=== PATIENT | male | born 1970 | race Caucasian/White ===

== ENCOUNTER 2021-11-23 14:45 | Inpatient (IN) | payer MEDICAID, SELFPAY ==
[2021-11-23] VITALS (7 sets, daily range): BP systolic 109–158; BP diastolic 60–109; PULSE 85–111; RESP 15–19; TEMP 36.4–36.5; O2SAT 93–98; BMI 23.7
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
[2021-11-23 16:05] LABS: Amphetamines Screen Urine Negative (Negative); Barbiturates Screen Urine Negative (Negative); Benzodiazepines Screen Urine Negative (Negative); Cocaine Screen Urine Negative (Negative); Opiate Screen Urine Negative (Negative); PCP Screen Urine Negative (Negative); THC Screen Urine Negative (Negative)
[2021-11-23 16:05] LABS: Basophils # 0.1 10^3/uL (0.0-0.1); Basophils % 1.2 %; Eosinophils # 0.3 10^3/uL (0.0-0.8); Eosinophils % 2.5 %; Hematocrit 46.8 % (42.0-52.0); Hemoglobin 15.5 g/dL (11.7-16.6); Lymphocytes # 4.7 10^3/uL (0.8-4.8); Lymphocytes % 43.8 %; Mean Corpuscular HGB Conc 33.1 g/dL (30.0-36.0); Mean Corpuscular Hemoglobin 36.7 pg (28.0-34.0); Mean Corpuscular Volume 110.9 fl (80-94); Mean Platelet Volume 8.3 fL (7.4-10.4); Monocytes # 0.6 10^3/uL (0.2-0.9); Monocytes % 5.1 %; Neutrophils # 5.12 10^3/uL (1.8-7.7); Neutrophils % 47.2 %; Nucleated Red Blood Cells % 0 %; Platelet Count 362 10^3/cmm (130-400); Red Blood Count 4.22 10^6/uL (4.1-5.3); Red Cell Distribution Width 11.7 % (12.1-15.1); White Blood Count 10.8 10^3/uL (4.0-10.0)
[2021-11-23] MEDS: LORazepam 1 mg Tablet PO (16:25)
[2021-11-23 16:30] LABS: Alanine Aminotransferase 50 U/L (0-41); Albumin Level 4.7 g/dL (3.5-5.2); Alkaline Phosphatase 83 U/L (40-130); Blood Urea Nitrogen 11 mg/dL (6-20); Calcium 8.9 mg/dL (8.5-10.5); Carbon Dioxide 25 mmol/L (22-29); Chloride 103 mmol/L (98-107); Glomerular Filtration Rate 119.9 mL/min (90-130); Glucose 102 mg/dL (65-115); Osmolality Calculated 296 mOsm/kg (285-295); Sodium 143 mmol/L (136-145); Thyroid Stimulating Hormone 0.42 uIU/mL (0.27-4.20); Total Bilirubin 0.2 mg/dL (0.15-1.2); Total Protein 7.7 g/dL (6.6-8.7)
[2021-11-23 16:31] LABS: Acetaminophen < 5.0 ug/mL (10-30); Salicylate < 0.3 mg/dL (3-10)
[2021-11-23 16:33] LABS: Alcohol Level 345 mg/dL (0-10); Aspartate Amino Transferase 54 U/L (0-40)
[2021-11-23] MEDS: haloperidol inj 5 mg/mL INJ 1 mL IM (16:36)
--- NOTE | 2021-11-23 18:54 | PC.NURSE ---
Report received from CLEMENT Fraire, assumed care of patient at this time.
--- NOTE | 2021-11-23 19:09 | PC.NURSE ---
discussed pending orders with dr rizo, new verbal order to hold all phlebotomy and IV insertion/medications while patient is sleeping. On awakening if patient is cooperative, may insert iv for blood draw and medications.
--- NOTE | 2021-11-23 21:39 | PC.NURSE ---
BAL drawn by lab at this time, patient cooperative. nad, gcs 15, cooperative with staff at this time. awaiting BAL result for transfer to NPU.
[2021-11-23 21:57] LABS: Alcohol Level 225 mg/dL (0-10)
--- NOTE | 2021-11-23 22:07 | PC.NURSE ---
report called to [facility], patient accepted to NPU.
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
[2021-11-24 06:00] VITALS: BP 118/78; PULSE 84; RESP 16; TEMP 36.6; O2SAT 95
[2021-11-24] MEDS: LORazepam 2 mg Tablet PO ×5 (06:26→20:18)
--- NOTE | 2021-11-24 06:28 | PC.NURSE ---
0620 CIWA 17 at this time, pt had been resting quietly since admit, when CIWA was 4 s/s noted when VS taken. Franny 2mg po per protocol at this time
[2021-11-24] MEDS: thiamine 100 mg Tablet PO (09:12)
[2021-11-24] MEDS: folic acid 1 mg Tablet PO (09:12)
[2021-11-24] MEDS: multivitamin therapeutic Tablet 1 TAB PO (09:12)
[2021-11-24 14:00] VITALS: BP 119/79; PULSE 92; RESP 15; TEMP 36.6; O2SAT 93
--- NOTE | 2021-11-24 15:20 | P.NPUHP_ITS ---
Providers/Chief Complaint Admitting Physician: Blue Santacruz MD Chief Complaint: suicidal ideation. HPI NPU History of Present Illness Elver Parks is a 51 year old male admitted voluntarily after presenting to the emergency department having consumed reportedly a half a gallon of whiskey 2 days ago. He endorses a significant history of alcohol abuse for several years and states that he has a significant ongoing use of daily alcohol for several years. He had reported during his brief interview that he has been depressed at times. Patient was admitted to the neuropsychiatric unit and has already rec eived Ativan for considerable alcohol-related withdrawals noted on the CIWA scale. The patient was confused and unable to provide any further detailed history. Past psychiatric history: He had reported unspecified history of inpatient psychiatric treatment. He reports currently not seeing a psychiatrist. Drug and alcohol history: The patient had reported a history of significant alcohol use with a history of significant withdrawal symptoms reported in the past. Medical history: He reports being diagnosed with hepatitis C. Current medications: None Surgical history: He has a history of exploratory laparotomy in the past. Allergies: He has no known drug allergies. Surgical social history: He reports that he lives in [facility] with his mother who is ill. He reports having grown up in [facility] with his family who were farmers. He reports having dropped out of the 12th grade and reports having earned his GED. 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 He does not report being . He did not endorse any history of sexual physical or emotional abuse. Meds NPU Home Medications Medication Instructions Recorded Confirmed Last Taken Type No Known Home Medications 11/23/21 11/23/21 Unknown History Allergies Allergy/AdvReac Type Severity Reaction Status Date / Time No Known Allergies Allergy Unverified 11/23/21 15:33 Mental Status Exam MSE Comments: The patient was lying in bed difficult to arouse and was unable to sit up to provide full details during the interview. He did appear to be trembling with significant shaking noted. He was in and out of consciousness throughout much of the interview. His mood was described as terrible his affect appeared flat and mood congruent his thought process is linear and logical. His thought content showed no evidence of homicidal ideation and he minimized suicidal ideation. He was alert and oriented to person and place but not date. There was no clear evidence of delusional thinking. He did not appear to be responding to internal stimuli. His attention and concentration appeared poor his insight was poor. His judgment was poor. Vitals/I&O/Wt Last Vital Signs Temp 98 F 11/24/21 14:00 Pulse 92 11/24/21 14:00 Resp 15 11/24/21 14:00 BP 119/79 11/24/21 14:00 Pulse Ox 93 11/24/21 14:00 O2 Del Method 11/24/21 06:00 Weight last 48 hrs Weight 81.647 kg Data NPU : 11/23/21 15:55 11/23/21 15:55 A&P Assessment and plan (1) Suicidal ideation: (2) Alcohol abuse: Plan Patient is a 51-year-old white male with reported history of suicidal ideation and alcohol dependence with elevated blood alcohol of 225 with significant jeff rn about alcohol withdrawal seizures. 1.? Encourage individual, group and milieu therapy 2.? Continue q-15 minute check for safety, continue CIWA protocol. 3.? Recommend sober living treatment at the highest level of care to which the patient is willing to commit. Involuntary Hold Information 96 Hour Hold: 96 Hour Involuntary Admission: Yes 96 Hour Hold Ending Date: 11/28/21 96 Hour Hold Ending Time: 00:01 Attestations NPU Medical Necessity Statement*: Inpatient hospitalization is medically necessary and the clinically appropriate intervention at this time. We will monitor medications and make changes as indicated. Patient will be in the hospital for over two midnights. Likely length of stay is three to five days. Coding Level of Care Code New Pt Acute Steam Trap Man for Cherrieg Fwd Patient Type New Medical Decision Making Straight Forward Diagnoses Suicidal ideation R45.851 Alcohol abuse F10.10
[2021-11-24 20:25] VITALS: BP 136/74; PULSE 93; RESP 18; TEMP 36.3; O2SAT 96
[2021-11-25] MEDS: ondansetron 4 MG Tablet PO (00:06)
[2021-11-25] MEDS: LORazepam 2 mg Tablet PO ×9 (00:08→22:22)
[2021-11-25] MEDS: acetaminophen 325 mg Tablet 650 MG PO ×2 (04:16→20:20)
[2021-11-25 06:00] VITALS: BP 128/80; PULSE 108; RESP 16; TEMP 36.9; O2SAT 97
--- NOTE | 2021-11-25 06:26 | PC.NURSE ---
Patient scored on CIWA 17,10,and 11 throughout the night:medicated with Ativan 2 mg at each assessment,medicated with Tylenol x1 for headache.
[2021-11-25] MEDS: folic acid 1 mg Tablet PO (08:13)
[2021-11-25] MEDS: thiamine 100 mg Tablet PO (08:13)
[2021-11-25] MEDS: multivitamin therapeutic Tablet 1 TAB PO (08:13)
[2021-11-25] MEDS: nicotine 2 mg Gum BUCCAL (09:47)
--- NOTE | 2021-11-25 12:03 | NUR.SHIFT ---
at 0800 pt assessment done bedside. pt extremely tremulous and weak, pt is mildly diaphoretic, reports nausea, pt reports last bm 11/24, itching skin, is confused and reports 6/10 anxiety. pt denies si/hi/avh and depression. reports 8/10 headpain. pt receiving 2 mg ativan due to CIWA score. pt cooperative although anxious. pt requesting to go home, pt verbalized understanding that he was not appropriate to discharge at this time.
[2021-11-25 14:00] VITALS: BP 110/71; PULSE 86; RESP 16; TEMP 36.7; O2SAT 94
[2021-11-25] MEDS: nicotine 4 mg lozenge MUCOUS MEM (17:54)
--- NOTE | 2021-11-25 18:15 | P.NPUPN_ITS ---
Subjective NPU Subjective: Patient is a 51-year-old white male admitted with suicidal ideation depression and alcohol dependence with the patient having reported having consumed a half a gallon of whiskey. Patient's mother had provided additional information that the patient was engaging in binge drinking. The patient had reported depressed mood but reports that he was feeling better today. Despite this, the patient's did appear to show evidence of significant tremors and required lorazepam to prevent alcohol withdrawal symptoms. Patient had endorsed an extended history of alcohol use and was unable to provide any evidence that he wished to consider stopping his use of alcohol despite some evidence of significant medical consequences associated with alcohol use. Patient was minimally involved in the milieu as he came out briefly to eat and returned back to his room where he isolated himself under the covers of his bed. Mental Status Exam MSE Comments: The patient was lying in bed difficult to arouse again and provided minimal history again today. He did appear to be trembling with significant shaking noted. He was in and out of consciousness throughout much of the interview. His mood was described as better His affect appeared flat and mood incongruent.His thought process is linear and logical. His thought content showed no evidence of homicidal ideation and he minimized suicidal ideation. He was alert and oriented to person and place but not date. There was no clear evidence of delusional thinking. He did not appear to be responding to internal stimuli. His attention and concentration appeared poor. his insight was poor. His judgment was poor. His impulse control remained guarded. Vitals/I&O/Wt Last Vital Signs Temp 98.1 F 11/25/21 14:00 Pulse 86 11/25/21 14:00 Resp 16 11/25/21 14:00 BP 110/71 11/25/21 14:00 Pulse Ox 94 11/25/21 14:00 O2 Del Method 11/25/21 14:00 Data NPU : 11/23/21 15:55 11/23/21 15:55 A&P Assessment and plan (1) Suicidal ideation: (2) Alcohol abuse: Plan Patient is a 51-year-old white male with reported history of suicidal ideation and alcohol dependence with elevated blood alcohol of 225 with significant concern about alcohol withdrawal seizures. 1.? Encourage individual, group and milieu therapy 2.? Continue q-15 minute check for safety, continue CIWA protocol. 3.? Recommend sober living treatment at the highest level of care to which the patient is willing to commit. Involuntary Hold Information 96 Hour Hold: 96 Hour Involuntary Admission: Yes 96 Hour Hold Ending Date: 11/28/21 96 Hour Hold Ending Time: 00:01 Attestations NPU Medical Necessity Statement*: Inpatient hospitalization is medically necessary and the clinically appropriate intervention at this time. We will monitor medications and make changes as indicated. Patient will be in the hospital for over two midnights. Likely length of stay is three to five days. Coding Level of Care Code Established Pt Acute Fashion Consultant Selling for Chg Fwd Patient Type Established History Problem Focused Exam Problem Focused Medical Decision Making Straight Forward Diagnoses Suicidal ideation R45.851 Alcohol abuse F10.10
[2021-11-25] MEDS: trazodone 50 mg Tablet PO (20:20)
[2021-11-25 22:00] VITALS: BP 126/77; PULSE 96; RESP 18; TEMP 36.6; O2SAT 95
[2021-11-26] VITALS (46 sets, daily range): BP systolic 102–147; BP diastolic 72–113; PULSE 67–123; RESP 12–24; TEMP 36.4–36.6; O2SAT 89–96
[2021-11-26] MEDS: nicotine 2 mg Gum BUCCAL ×2 (07:35→10:25)
[2021-11-26] MEDS: multivitamin therapeutic Tablet 1 TAB PO (09:28)
[2021-11-26] MEDS: folic acid 1 mg Tablet PO (09:28)
[2021-11-26] MEDS: thiamine 100 mg Tablet PO (09:28)
[2021-11-26] MEDS: benztropine 1 mg Tablet PO (09:32)
[2021-11-26] MEDS: LORazepam 2 mg Tablet PO (09:32)
--- NOTE | 2021-11-26 09:34 | P.NPUPN_ITS ---
Subjective NPU Subjective: Patient is a 51-year-old white male admitted with suicidal ideation, depression and alcohol dependence with the patient having reported having consumed a half a gallon of whiskey. Patient's mother had provided additional information that the patient was engaging in binge drinking. The patient had endorsed feeling somewhat dizzy and shaky but otherwise reported that he was feeling much better. Patient was encouraged to continue to improve fluid intake and reported desire to return home soon. He reported his mood as being improved and reported feeling motivated to return home to work. He had continue to minimize his alcohol consumption. Mental Status Exam MSE Comments: The patient was lying in bed and was alert and oriented today. He was more conversant and cooperative. He did appear to be trembling with significant shaking noted. His mood was described as better . His affect a ppeared brighter and mood congruent. His thought process is linear and logical. His thought content showed no evidence of homicidal ideation and he minimized suicidal ideation. There was no clear evidence of delusional thinking. He did not appear to be responding to internal stimuli. His attention and concentration appeared better. his insight was poor. His judgment was poor. His impulse control remained guarded. Vitals/I&O/Wt Last Vital Signs Temp 97.8 F 11/26/21 06:00 Pulse 90 11/26/21 15:30 Resp 16 11/26/21 15:30 BP 135/88 11/26/21 15:30 Pulse Ox 95 11/26/21 15:30 O2 Del Method 11/25/21 14:00 11/26/21 11/26/21 11/26/21 06:59 14:59 22:59 Intake Total 300 / 300 Balance 300 / 300 Data NPU : 11/23/21 15:55 11/26/21 14:23 A&P Assessment and plan (1) Depressive disorder: (2) Suicidal ideation: (3) Alcohol abuse: Plan Patient is a 51-year-old white male with reported history of suicidal ideation and alcohol dependence with elevated blood alcohol of 225 with significant concern about alcohol withdrawal seizures. 1.? Encourage individual, group and milieu therapy 2.? Continue q-15 minute check for safety, continue CIWA protocol. 3.? Recommend sober living treatment at the highest level of care to which the patient is willing to commit. Involuntary Hold Information 96 Hour Hold: 96 Hour Involuntary Admission: Yes 96 Hour Hold Ending Date: 11/28/21 96 Hour Hold Ending Time: 00:01 Attestations NPU Medical Necessity Statement*: Inpatient hospitalization is medically necessary and the clinically appropriate intervention at this time. We will monitor med ications and make changes as indicated. Patient will likely be hospitalized for 1 to 2 days. Coding Level of Care Code Established Pt Acute Solar/Renewable Energy Sales for Chg Fwd Patient Type Established History Problem Focused Exam Problem Focused Medical Decision Making Straight Forward Diagnoses Depressive disorder F32.A Suicidal ideation R45.851 Alcohol abuse F10.10
[2021-11-26] MEDS: ondansetron 4 MG Tablet PO (09:35)
--- NOTE | 2021-11-26 09:39 | PC.NURSE ---
Pt experiencing detox, administered 2mg PO Ativan for symptoms.
[2021-11-26] MEDS: LORazepam 2 mg/mL INJ 1 mL IM ×2 (12:05→12:17)
[2021-11-26 12:19] LABS: Glucose Point of Care 105 mg/dL (70-110)
[2021-11-26] MEDS: PHENobarbital 130 mg/mL SDV 1 mL 260 MG IV ×4 (12:33→17:20)
--- NOTE | 2021-11-26 12:48 | PC.NURSE ---
patient arrived from NPU after rapid response, Dr. Potter at bedside, gave v.o. to give Phenobarb, administered per APR, patient AO x4 follows commands
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
--- NOTE | 2021-11-26 14:05 | CTR_ITS ---
PROCEDURE INFORMATION: Exam: CT Head Without Contrast Exam date and time: 11/26/2021 4:28 PM Age: 51 years old Clinical indication: Psychosis or psychotic disorder; Other: Seizure activity TECHNIQUE: Imaging protocol: Computed tomography of the head without contrast. Radiation optimization: All CT scans at this facility use at least one of these dose optimization techniques: automated exposure control; mA and/or kV adjustment per patient size (includes targeted exams where dose is matched to clinical indication); or iterative reconstruction. COMPARISON: No relevant prior studies available. RADIATION DOSE METRICS: Total DLP (mGy-cm): 1131.78 FINDINGS: Brain: No hemorrhage. No edema. Mild sequela of chronic small vessel ischemic disease. No mass effect. Cerebral ventricles: No ventriculomegaly. Paranasal sinuses: Visualized sinuses are unremarkable. No fluid levels. Mastoid air cells: Visualized mastoid air cells are well aerated. Bones/joints: Unremarkable. No acute fracture. Soft tissues: Unremarkable. CT/CT head wo con* [id number] IMPRESSION: No acute intracranial abnormality.
--- NOTE | 2021-11-26 14:37 | PC.NURSE ---
Seizure noted approximately 3 minutes
[2021-11-26 14:58] LABS: Alanine Aminotransferase 37 U/L (0-41); Albumin Level 3.9 g/dL (3.5-5.2); Alkaline Phosphatase 71 U/L (40-130); Blood Urea Nitrogen 7 mg/dL (6-20); Calcium 9.1 mg/dL (8.5-10.5); Carbon Dioxide 23 mmol/L (22-29); Chloride 102 mmol/L (98-107); Globulin 2.7 g/dL (1.3-4.6); Glomerular Filtration Rate 119.9 mL/min (90-130); Glucose 190 mg/dL (65-115); Magnesium 1.8 mg/dL (1.7-2.3); Osmolality Calculated 287 mOsm/kg (285-295); Sodium 137 mmol/L (136-145); Total Bilirubin 0.4 mg/dL (0.15-1.2); Total Protein 6.6 g/dL (6.6-8.7)
[2021-11-26 15:06] LABS: Anion Gap 16.6 (5-19); Aspartate Amino Transferase 36 U/L (0-40)
[2021-11-26 15:07] LABS: Potassium 4.6 mmol/L (3.5-5.1)
--- NOTE | 2021-11-26 17:39 | PC.NURSE ---
Patient becoming agitated, not wanting to keep leads on, not cooperating with staff, confused. Dr. Potter notified
[2021-11-26] MEDS: ziprasidone 20 mg/mL SDV 10 MG IM (17:58)
--- NOTE | 2021-11-26 18:09 | PC.NURSE ---
Patient attempting to get out of bed, increased confusion, not cooperating with staff, Zyprexa administered per order from Dr. Potter
--- NOTE | 2021-11-26 20:11 | PC.NURSE ---
Bedside report given by Kiran Stokes RN. Patient is currently sleeping w/respirations. Geodone administered previous shift at 1758. Bed rails are padded and suction is available. Patient is currently on 1:1.
[2021-11-27] VITALS (53 sets, daily range): BP systolic 92–199; BP diastolic 64–134; PULSE 66–109; RESP 12–21; TEMP 36.2–38; O2SAT 89–99
--- NOTE | 2021-11-27 01:14 | PC.NURSE ---
Patient has slept through first 6 hours of shift. Periodically has coughing fits that are productive. Applied o2 at 2 liters as Spo2 dropped into the upper 80s during patients snoring. Patient awoke briefly around 0100 and attempted to ambulate but was too weak. Oriented patient and he continues to mutter/mumble incoherent words.
[2021-11-27] MEDS: PHENobarbital 130 mg/mL SDV 1 mL 260 MG IV ×4 (01:41→09:22)
[2021-11-27 04:05] LABS: Basophils # 0.1 10^3/uL (0.0-0.1); Basophils % 0.8 %; Eosinophils # 0.3 10^3/uL (0.0-0.8); Eosinophils % 2.6 %; Hematocrit 44.5 % (42.0-52.0); Hemoglobin 15.3 g/dL (11.7-16.6); Lymphocytes # 3.2 10^3/uL (0.8-4.8); Lymphocytes % 24.4 %; Mean Corpuscular HGB Conc 34.4 g/dL (30.0-36.0); Mean Corpuscular Volume 107.7 fl (80-94); Mean Platelet Volume 8.6 fL (7.4-10.4); Monocytes # 0.9 10^3/uL (0.2-0.9); Monocytes % 6.5 %; Neutrophils # 8.59 10^3/uL (1.8-7.7); Neutrophils % 65.5 %; Nucleated Red Blood Cells % 0 %; Platelet Count 279 10^3/cmm (130-400); Red Blood Count 4.13 10^6/uL (4.1-5.3); Red Cell Distribution Width 11.3 % (12.1-15.1); White Blood Count 13.1 10^3/uL (4.0-10.0)
[2021-11-27 04:23] LABS: Add Urine Microscopic? NO; Charge for UA Resulting for Rev
[2021-11-27 04:25] LABS: Bilirubin Urine Negative (Negative); Blood Urine Negative (Negative); Glucose Urine UA Negative (Normal); Ketones Urine Trace (Negative); Leukocyte Esterase Urine Negative; Nitrate Urine Negative; Protein Urine Negative; Urine Appearance Clear (CLEAR); Urine Color Yellow (Yellow); Urobilinogen Urine 0.2 mg/dL (Negative)
[2021-11-27 04:45] LABS: Blood Urea Nitrogen 5 mg/dL (6-20); Calcium 9.1 mg/dL (8.5-10.5); Carbon Dioxide 26 mmol/L (22-29); Chloride 104 mmol/L (98-107); Glomerular Filtration Rate 143.2 mL/min (90-130); Glucose 93 mg/dL (65-115); Osmolality Calculated 285 mOsm/kg (285-295); Sodium 139 mmol/L (136-145)
[2021-11-27 04:51] LABS: Anion Gap 13.1 (5-19); Potassium 4.1 mmol/L (3.5-5.1)
[2021-11-27 04:54] LABS: Amphetamines Screen Urine Negative (Negative); Barbiturates Screen Urine Positive (Negative); Benzodiazepines Screen Urine Positive (Negative); Cocaine Screen Urine Negative (Negative); Opiate Screen Urine Negative (Negative); PCP Screen Urine Negative (Negative); THC Screen Urine Negative (Negative)
[2021-11-27] MEDS: nicotine 2 mg Gum BUCCAL (05:02)
[2021-11-27] MEDS: acetaminophen 325 mg Tablet 650 MG PO (05:46)
--- NOTE | 2021-11-27 06:20 | PC.NURSE ---
Patient has remained calm this morning and awake but has needed frequent re-orientation to the events of the past 24hrs. Complains mostly of a splitting headache. Phenobarbital and Tylenol have been administered. Patient has been able to talk more clearly as the shift has gone on. Carrying out conversations now but does have fleeting train of thought. Patient was able to stand and stretch legs for around 30 seconds. Still remains weak and easily tired.
--- NOTE | 2021-11-27 07:57 | PC.NURSE ---
Patient stood at the edge of the bed to use urinal with stand by assist. Shortly after patient returned to bed around 0715 pt began having a seizure. This nurse and other staff assisted patient and PRN phenobarbital was given. Seizure lasted approximately [address] knutson
[2021-11-27] MEDS: rocuronium 10 mg/mL INJ 5mL 100 MG IVP (09:49)
[2021-11-27] MEDS: propofol 10 mg/mL SDV 20 mL 200 MG (09:49)
--- NOTE | 2021-11-27 09:50 | XR_ITS ---
WS: [id number] Exam: XR chest 1V portable [id number] Date/Time of Exam: 11/27/2021 9:38 AM Reason For Exam: ET and NG Comparison 06/04/2015. The lungs are well ventilated and clear. No pleural effusions. An ET tube is noted. The tip ends abou t 7 cm above the supriya. An NG tube barely enters the stomach. The side-port of the tube is in the l ower esophagus. The lungs are clear and well ventilated. Normal cardiomediastinal silhouette. Additio nal monitoring leads superimpose the chest. XR/XR chest 1V portable [id number] IMPRESSION: 1. ET tube in place ending about 7 cm above the supriya. The lungs appear to be well ventilated. 2. Enteric tube barely entering the stomach. The side-port of the tube is in th e lower esophagus. The tube should be advanced another 7 to 8 cm for optimal po sition. 3. No acute cardiopulmonary process noted at this time. These findings and recommendations were discussed by phone with the patient's I CU nurse at 10:00 AM 11/27/2021.
[2021-11-27] MEDS: propofol 1,000 MG/100 ML INJ 7.35 MG IV (10:00)
--- NOTE | 2021-11-27 10:35 | PC.NURSE ---
Patient began having a seizure with nursing staff and Dr. Potter at bedside. PRN medication given and Dr. Potter decided to intubate. See MAR for medication orders. Intubation done at 0935. OG tube inserted and advanced per orders.
--- NOTE | 2021-11-27 10:50 | PM.PN ---
Subjective Subjective: Patient was intubated today he had 2 episodes of breakthrough seizures this morning He was given propofol 20, etomidate 20 and [address] head unremarkable Afebrile Drug screen reviewed Vitals/I&O/Wt Last Vital Signs Temp 98.2 F 11/27/21 06:00 Pulse 90 11/27/21 06:00 Resp 12 11/27/21 10:01 BP 121/101 11/27/21 06:00 Pulse Ox 99 11/27/21 10:01 O2 Del Method 11/26/21 23:30 O2 Flow Rate 2 11/26/21 23:30 FiO2 40 11/27/21 10:01 11/26/21 11/27/21 11/27/21 22:59 06:59 14:59 Intake Total 115 / 415 110 / 525 Output Total 800 / 800 Balance -685 / -385 110 / -275 Physical Exam Narrative: Patient is intubated and sedated Looks euvolemic Postictal state S1, S2 Doing well on 2 L nasal cannula Awake but not oriented Abdomen soft Foul-smelling clothes Urinary Catheter Management: Foote: Cath Placed During This Visit: yes Urinary Catheter Date of Insertion: 11/27/21 Urinary Catheter Time of Insertion: 10:28 Data : 11/27/21 03:46 11/27/21 03:46 A&P Assessment and plan (1) Depressive disorder: (2) Alcohol withdrawal seizure: (3) Suicidal ideation: (4) Alcohol abuse: (5) On mechanically assisted ventilation: Plan Patient was intubated for airway protection secondary to breakthrough seizures, DTs 11/27 Currently on propofol Afebrile CT head unremarkable Alcohol withdrawal seizures Continue high-dose thiamine and folic acid Start tube feedings with water flushes Leukocytosis without active source of infection No signs of UTI Monitor for now off antibiotics Drug screen noted Family updated Start tube feeds DVT prophylaxis on board Continue phenobarbital with propofol Continue Keppra Bipolar suicidal ideation after extubation he will go back to neuropsychiatric unit Attestations Medical Necessity Statement*: Continue ICU management Time Spent in Patient Care: 40 Coding Level of Care Code Acute Power Plant Operations Manager for Cherrieg Fwd Diagnoses Depressive disorder F32.A Alcohol withdrawal seizure F10.939; R56.9 Suicidal ideation R45.851 Alcohol abuse F10.10 On mechanically assisted ventilation Z99.11
--- NOTE | 2021-11-27 10:56 | PM.ACPR ---
Acute Procedures Intubation: Time out performed: Yes Sedative: etomidate Mg given: 20 Paralytic: rocuronium Mg given: 100 Laryngoscope: fiber optic video scope Assist device used: fiber optic device ET tube size: 8 Tube secured depth (cm): 25 Tube secured location: lips Tube placement confirmation: visualized tube passing through cords, equal breath sounds bilaterally, no breath sounds over epigastrium, confirmation by capnometry and color change noted Patient tolerated procedure: well Intubation complications: none Additional comments: Patient was intubated for DTs This has to be done urgently because of active seizures Mother gave consent however this was an emergent procedure Patient was intubated without any difficulty Patient is saturating well blood pressure is fine postintubation Currently on propofol NGTube has been advanced
--- NOTE | 2021-11-27 11:30 | PC.NUTR ---
Tube feeding consult received. Recommend Jevity 1.2 starting @ 10 mls/hr and increasing 10 mls Q8H as tolerated until goal rate of 50 mls/hr is reached, with fresh water flushes of 100 mls Q4H. Details in RD assessment.
[2021-11-27 13:14] LABS: ABG PCO2 45.5 mmHg (35-45); Alveolar-Arterial Oxygen Gradi 20.3 mmHg (5-10); Arterial Blood Gas Hematocrit 46.1 % (42-52); Base Excess ABG 2.3 mmol/L (-2.0-2.0); Blood Gas Operator Identificat GD; Blood Gas Sample Site Brachial, right; Blood Gas Sample Type Arterial; Carboxyhemoglobin 1.2 %THgb (0.4-20.1); HCO3 ABG 27.9 mmol/L (22-26); HGB O2 Sat 94.1 % (95-100); Ionized Calcium Level - ABG 1.2 mmol/L (1.1-1.4); Oxygen Device VENT; Oxygen Saturation ABG 96.2; PO2 ABG 76.3 mmHg (80.0-100.0); Potassium Level - ABG 3.5 mmol/L (3.5-5.0); Total Hemoglobin 15.1 g/dL (14-18)
[2021-11-27] MEDS: propofol 1,000 MG/100 ML INJ 14.7 MG IV ×2 (16:05→23:26)
[2021-11-28] VITALS (52 sets, daily range): BP systolic 90–115; BP diastolic 61–81; PULSE 76–113; RESP 12–19; TEMP 37.1–38.1; O2SAT 91–98
[2021-11-28 02:56] LABS: Basophils # 0.1 10^3/uL (0.0-0.1); Basophils % 0.6 %; Eosinophils # 0.3 10^3/uL (0.0-0.8); Eosinophils % 1.5 %; Hematocrit 45.5 % (42.0-52.0); Hemoglobin 14.7 g/dL (11.7-16.6); Lymphocytes # 2.6 10^3/uL (0.8-4.8); Lymphocytes % 15.5 %; Mean Corpuscular HGB Conc 32.3 g/dL (30.0-36.0); Mean Corpuscular Hemoglobin 36.5 pg (28.0-34.0); Mean Corpuscular Volume 112.9 fl (80-94); Mean Platelet Volume 8.9 fL (7.4-10.4); Monocytes # 0.9 10^3/uL (0.2-0.9); Monocytes % 5.5 %; Neutrophils # 12.97 10^3/uL (1.8-7.7); Neutrophils % 76.7 %; Nucleated Red Blood Cells % 0 %; Platelet Count 259 10^3/cmm (130-400); Red Blood Count 4.03 10^6/uL (4.1-5.3); Red Cell Distribution Width 11.4 % (12.1-15.1); White Blood Count 16.9 10^3/uL (4.0-10.0)
[2021-11-28 03:15] LABS: Blood Urea Nitrogen 8 mg/dL (6-20); Calcium 8.3 mg/dL (8.5-10.5); Carbon Dioxide 25 mmol/L (22-29); Chloride 101 mmol/L (98-107); Glomerular Filtration Rate 143.2 mL/min (90-130); Glucose 109 mg/dL (65-115); Osmolality Calculated 275 mOsm/kg (285-295); Sodium 133 mmol/L (136-145)
[2021-11-28] MEDS: chlorhexidine gluconate 4% Btl 118 mL 1 APPLIC TOPICAL (03:28)
--- NOTE | 2021-11-28 04:00 | XR_ITS ---
WS: [id number] Exam: XR chest 1V portable [id number] Date/Time of Exam: 11/28/2021 4:04 AM Reason For Exam: ET Comparison 11/27/2021. There is infiltrate and atelectasis in the right lower lobe. Left lung is clear. Normal cardiomediast inal silhouette. ET tube remains in satisfactory position ending at about the level of the T3-4 disc space. An NG tube is noted in the fundus of the stomach. No pleural effusions. No pneumothorax. Dextr oscoliosis of the T-spine. XR/XR chest 1V portable [id number] IMPRESSION: 1. New infiltrate and atelectasis in the right lower lobe since prior study. 2. ET tube and NG tube in satisfactory position.
[2021-11-28] MEDS: propofol 1,000 MG/100 ML INJ 19.6 MG IV ×2 (04:37→16:29)
[2021-11-28 06:50] LABS: ABG PH Result 7.42 (7.35-7.45); Arterial Blood Gas Hematocrit 45.9 % (42-52); Base Excess ABG 2.6 mmol/L (-2.0-2.0); Blood Gas Allen Test Pos; Blood Gas Operator Identificat MONRO; Blood Gas Sample Site Radial, right; Blood Gas Sample Type Arterial; HCO3 ABG 27.6 mmol/L (22-26); Oxygen Device VENT
[2021-11-28] MEDS: cefTRIAXone 1,000 MG in sodium chloride 0.9% (plus) 50 ML 100 MG IV (08:20)
[2021-11-28] MEDS: multivitamin therapeutic Tablet 1 TAB PO (08:20)
[2021-11-28] MEDS: folic acid 1 mg Tablet PO (08:20)
[2021-11-28] MEDS: sennosides-docusate Tablet 1 TAB PO (08:20)
[2021-11-28] MEDS: piperacillin-tazobactam 3.375 GM in sodium chloride 0.9% (plus) 50 ML IV ×2 (08:21→17:55)
--- NOTE | 2021-11-28 10:50 | PM.PN ---
Subjective Subjective: Patient is intubated and sedated Febrile events noted I will start him on broad-spectrum antibiotics For pain blood culture, sputum culture has been sent Most likely this is aspiration pneumonia right lower lung bases showing infiltrate Vitals/I&O/Wt Last Vital Signs Temp 98.7 F 11/28/21 04:00 Pulse 87 11/28/21 06:30 Resp 12 11/28/21 08:07 BP 100/75 11/28/21 06:30 Pulse Ox 94 11/28/21 08:07 O2 Del Method 11/26/21 23:30 O2 Flow Rate 2 11/26/21 23:30 FiO2 40 11/28/21 08:07 11/27/21 11/28/21 11/28/21 22:59 06:59 14:59 Intake Total 250.017 / 267.257 237.145 / 504.402 915 / 915 Output Total 300 / 300 Balance -49.983 / -32.743 237.145 / 204.402 915 / 915 Physical Exam Narrative: Intubated and sedated Hemodynamically stable Afebrile FiO2 minimal Looks euvolemic Abdomen soft TPN running 30 mill per hour Lower extremities no edema Urinary Catheter Management: Foote: Cath Placed During This Visit: yes Reason for Continuing Indwelling Catheter: Accurate Measurement of Urinary Output in Critically Ill Patients Urinary Catheter Date of Insertion: 11/27/21 Urinary Catheter Time of Insertion: 10:28 Data : 11/28/21 02:32 11/28/21 02:32 Micro: Microbiology 11/27/21 10:00 Gram Stain - Final Sputum - Endotracheal Tube Aspirate Sputum Culture - Preliminary 11/28/21 08:47 Blood Culture - Preliminary Blood SPECIMEN COLLECTED 11/28/21 08:39 Blood Culture - Preliminary Blood SPECIMEN COLLECTED A&P Assessment and plan (1) On mechanically assisted ventilation: (2) Depressive disorder: (3) Alcohol withdrawal seizure: (4) Suicidal ideation: (5) Alcohol abuse: (6) Aspiration pneumonia: Plan Sepsis related to aspiration pneumonia Patient was intubated 11/27 for DTs Aspiration pneumonia Continue Zosyn Respiratory Check MRSA PCR Blood culture sent Sputum culture has been sent 60 no fever today Not requiring vasopressors We will give him septic bolus, sepsis criteria met with febrile event, worsening leukocytosis patient spiked fever last night, Continue Keppra DVT prophylaxis on board Full code Patient is getting tube feeding Attestations Medical Necessity Statement*: Continue ICU management Time Spent in Patient Care: 40 Coding Level of Care Code Acute Research Kennel Supervisor for Chg Fwd Diagnoses On mechanically assisted ventilation Z99.11 Depressive disorder F32.A Alcohol withdrawal seizure F10.939; R56.9 Suicidal ideation R45.851 Alcohol abuse F10.10 Aspiration pneumonia J69.0
[2021-11-28] MEDS: lactated ringers 1,000 ML 999 ML IV ×2 (12:12→14:43)
[2021-11-28 13:09] LABS: Lactate (Lactic Acid level) 0.7 mmol/L (0.5-2.2)
--- NOTE | 2021-11-28 14:14 | ECG_ITS ---
[facility] Test Date: 2021-11-28 Pat Name: Elver Parks Department: Room: ICU08 Gender: Male Patient Services Assistant: : 1970 Requested By: Guevara Potter Order Number: [id number] Lynn MD: Blayne Genao M.D. Measurements Intervals [place] Rate: 80 P: 73 MS: 125 QRS: 50 QRSD: 87 T: 45 QT: 351 QTc: 407 Interpretive Statements SINUS RHYTHM ST elevation in the inferolateral leads, possibly related to early repolarization no previous ECG available for comparison Electronically Signed On 11-28-2021 19:09:24 CDT by Blayne Genao M.D. [id number]
[2021-11-28 15:08] LABS: Troponin T (5th) Once 7 ng/L (0-15)
[2021-11-28] MEDS: propofol 1,000 MG/100 ML INJ 17.15 MG IV ×2 (16:30→22:05)
--- NOTE | 2021-11-28 18:28 | PC.NURSE ---
ST elevation was noted on monitor this shift. Dr. Potter was notified EKG and labs were done.
[2021-11-28] MEDS: enoxaparin 40 mg/0.4 mL Syringe SUBCUT (21:51)
[2021-11-29] VITALS (55 sets, daily range): BP systolic 76–144; BP diastolic 54–102; PULSE 60–111; RESP 10–15; TEMP 36.9–37.1; O2SAT 89–97
[2021-11-29] MEDS: chlorhexidine gluconate 4% Btl 118 mL 1 APPLIC TOPICAL (02:34)
[2021-11-29] MEDS: propofol 1,000 MG/100 ML INJ 17.15 MG IV (03:06)
[2021-11-29 03:58] LABS: Basophils # 0.1 10^3/uL (0.0-0.1); Basophils % 0.8 %; Eosinophils # 0.4 10^3/uL (0.0-0.8); Hematocrit 37.1 % (42.0-52.0); Hemoglobin 12.1 g/dL (11.7-16.6); Lymphocytes # 3.8 10^3/uL (0.8-4.8); Lymphocytes % 30.2 %; Mean Corpuscular HGB Conc 32.6 g/dL (30.0-36.0); Mean Corpuscular Hemoglobin 36.1 pg (28.0-34.0); Mean Corpuscular Volume 110.7 fl (80-94); Mean Platelet Volume 9.8 fL (7.4-10.4); Monocytes # 1.1 10^3/uL (0.2-0.9); Monocytes % 8.5 %; Neutrophils # 7.16 10^3/uL (1.8-7.7); Neutrophils % 57.3 %; Nucleated Red Blood Cells % 0 %; Platelet Count 206 10^3/cmm (130-400); Red Blood Count 3.35 10^6/uL (4.1-5.3); Red Cell Distribution Width 11.3 % (12.1-15.1); White Blood Count 12.5 10^3/uL (4.0-10.0)
--- NOTE | 2021-11-29 04:00 | XRR_ITS ---
PROCEDURE INFORMATION: Exam: XR Chest Exam date and time: 11/29/2021 4:09 AM Age: 51 years old Clinical indication: Shortness of breath; Patient HX: F/u for resp failure. Patient intubated. ; Additional info: Pna TECHNIQUE: Imaging protocol: Radiologic exam of the chest. Views: 1 view. COMPARISON: CR XR chest 1V portable [id number] 11/28/2021 4:13 AM FINDINGS: Tubes, catheters and devices: An endotracheal tube is placed with its tip 4.5 cm from the supriya. Nasogastric tube is present with its tip in the proximal stomach. EKG leads overlie the chest. Lungs: There are patchy opacities in the right lower hemithorax similar to present yesterday's examination likely representing atelectasis. Pleural spaces: Some fluid is seen within the minor fissure. Heart/Mediastinum: Unremarkable. No cardiomegaly. Bones/joints: Unremarkable. XR/XR chest 1V portable [id number] IMPRESSION: 1. Endotracheal tube tip 4.5 cm from the supriya. 2. Nasogastric tube tip in the proximal stomach. 3. Patchy opacities in the right lower hemithorax likely represents atelectasis. 4. Fluid is seen in the minor fissure.
[2021-11-29 04:19] LABS: Anion Gap 10.9 (5-19); Blood Urea Nitrogen 11 mg/dL (6-20); Calcium 8.3 mg/dL (8.5-10.5); Carbon Dioxide 27 mmol/L (22-29); Chloride 99 mmol/L (98-107); Glomerular Filtration Rate 119.9 mL/min (90-130); Glucose 97 mg/dL (65-115); Osmolality Calculated 275 mOsm/kg (285-295); Potassium 3.9 mmol/L (3.5-5.1); Sodium 133 mmol/L (136-145)
[2021-11-29 04:37] LABS: ABG PCO2 45.7 mmHg (35-45); ABG PH Result 7.41 (7.35-7.45); Arterial Blood Gas Hematocrit 36.5 % (42-52); Base Excess ABG 3.4 mmol/L (-2.0-2.0); Blood Gas Allen Test Pos; Blood Gas Sample Type Arterial; HCO3 ABG 28.7 mmol/L (22-26); PO2 ABG 88.3 mmHg (80.0-100.0)
[2021-11-29 04:38] LABS: Blood Gas Operator Identificat MONRO; Blood Gas Sample Site Radial, right; Oxygen Device VENT
--- NOTE | 2021-11-29 07:00 | PC.NURSE ---
Bedside report completed with CLEMENT Arias and CLEMENT Mohamud.
--- NOTE | 2021-11-29 07:07 | PC.NURSE ---
Patient has remained comfortable and rested throughout the night. Temp ran febrile early in the shift and broke around 0200 with current temp of 98.6. Heart rate has lowered through the shift and currently in the mid 60s. Report given and bedside to Lulu Stanton.
--- NOTE | 2021-11-29 08:00 | PC.NURSE ---
CIWA score: Unable to fully completed appropriately as patient is intubated and sedated with fentanyl and propofol. Pt exhibits no s/s of distress.
[2021-11-29] MEDS: multivitamin therapeutic Tablet 1 TAB PO (08:07)
[2021-11-29] MEDS: folic acid 1 mg Tablet PO (08:07)
[2021-11-29] MEDS: sennosides-docusate Tablet 1 TAB PO (08:07)
[2021-11-29] MEDS: piperacillin-tazobactam 3.375 GM in sodium chloride 0.9% (plus) 50 ML IV ×4 (08:09→23:43)
--- NOTE | 2021-11-29 08:50 | PC.NURSE ---
Mom, Elba Parks, called to check on pt. Update given
[2021-11-29] MEDS: propofol 1,000 MG/100 ML INJ 12.25 MG IV ×2 (10:01→14:35)
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
--- NOTE | 2021-11-29 10:10 | PC.NURSE ---
not placed in behavior restraints as security here and increased propofol for sedation ... Dr Mccain aware at this time
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
--- NOTE | 2021-11-29 11:56 | PC.NURSE ---
remains sedation Dr Mccain here prior for exam aware status to keep sedated today will reattempt am
--- NOTE | 2021-11-29 16:25 | PC.NURSE ---
mother here at bedside talking with him sedation decreased waking up answering questions appropriately became some frustrated and started kicking bed and shaking head ... mother here talked at length will attempt to extubate
--- NOTE | 2021-11-29 17:15 | PC.NURSE ---
extubated tolerating ice chips at this time cooperative with staff NPU notified of extubation and to see im am
[2021-11-29] MEDS: PHENobarbital 130 mg/mL SDV 1 mL 260 MG IV (19:10)
[2021-11-29] MEDS: nicotine 4 mg lozenge MUCOUS MEM (19:10)
--- NOTE | 2021-11-29 19:10 | PC.NURSE ---
Pt now responding and requesting a diffrent sitter .. attempted tremor ect kicking feet on end of bed..
[2021-11-29] MEDS: ziprasidone 20 mg/mL SDV 10 MG IM (19:51)
--- NOTE | 2021-11-29 20:03 | PC.NURSE ---
Zyprexa Geodon administered per MAR; 7.5 mg Zyprexa PO due at 2100. Dr. Velasquez contacted and order received to hold bedtime zyprexa due to geodon administration. Medication not administered.
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
--- NOTE | 2021-11-29 20:36 | ECG_ITS ---
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 Measurements Intervals [place] Rate: 107 P: 42 OR: 122 QRS: 54 QRSD: 93 T: 6 QT: 328 QTc: 439 Interpretive Statements SINUS TACHYCARDIA NONSPECIFIC ST & T-WAVE ABNORMALITY Compared to ECG 11/28/2021 14:16:32 T-wave abnormality now present Sinus rhythm no longer present ST (T wave) deviation no longer present Electronically Signed On 11-30-2021 22:02:10 CDT by Lincoln Lewis M.D. [email or web address]/store/[id number]
--- NOTE | 2021-11-29 20:45 | PC.NURSE ---
Patient reported chest pain @2034. Heart rhythm appeared sinus tach in the low 100s. Hospitalist was nearby and notified. Stat EKG was acquired and troponin series ordered.
[2021-11-29] MEDS: enoxaparin 40 mg/0.4 mL Syringe SUBCUT (21:58)
[2021-11-29 22:40] LABS: Troponin(5th) Baseline 201 ng/L (0-15)
--- NOTE | 2021-11-29 22:52 | ECG_ITS ---
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 Measurements Intervals [place] Rate: 100 P: 56 VT: 118 QRS: 56 QRSD: 94 T: 31 QT: 338 QTc: 436 Interpretive Statements SINUS TACHYCARDIA WITH SHORT VT INTERVAL ST ELEVATION, CONSIDER INFERIOR INJURY [MARKED ST ELEVATION W/O NORMALLY INFLECTED T-WAVE IN II/aVF] ACUTE [place] Compared to ECG 11/29/2021 20:36:10 Short VT interval now present ST (T wave) deviation now present Myocardial infarct finding now present T-wave abnormality no longer present Electronically Signed On 11-30-2021 22:05:59 CDT by Lincoln Lewis M.D. [id number]
[2021-11-29] MEDS: nitroglycerin 1 gm/inch oint Pkt 0.5 INCH TOPICAL (23:42)
--- NOTE | 2021-11-29 23:53 | ECG_ITS ---
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 Measurements Intervals [place] Rate: 105 P: 58 AR: 121 QRS: 58 QRSD: 89 T: 34 QT: 326 QTc: 432 Interpretive Statements SINUS TACHYCARDIA ST ELEVATION,consistent with early repolarization Electronically Signed On 11-30-2021 22:01:48 CDT by Lincoln Lewis M.D. [id number]
[2021-11-30] VITALS (31 sets, daily range): BP systolic 94–133; BP diastolic 68–95; PULSE 60–105; RESP 16–18; TEMP 36.6–37.2; O2SAT 80–97
[2021-11-30 00:24] LABS: Troponin 5 2HR Delta -13.8 ABS# (0-10)
[2021-11-30 00:25] LABS: Troponin 5 2HR 187.2 ng/L (0-15)
--- NOTE | 2021-11-30 00:30 | USCV_ITS ---
[facility] Age: 51 Gender: M : 1970 Exam Date: 11/30/2021 00:42 Ordering Phys: Travis Velasquez MD Technologist: Claudine Beltran [place] [facility] [place]ication: CHEST PAIN BP: 125 / 79 HR: 100 Rhythm: Sinus Technical Quality: Adequate MEASUREMENTS (Male / Female) Normal Values 2D ECHO LV Diastolic Diameter PLAX 4.3 cm 4.2 - 5.9 / 3.9 - 5.3 cm LV Systolic Diameter PLAX 2.6 cm LV Chamber Size 3.6 cm IVS Diastolic Thickness 1.0 cm 0.6 - 1.0 / 0.6 - 0.9 cm IVS Systolic Thickness 1.3 cm LVPW Diastolic Thickness 1.1 cm 0.6 - 1.0 / 0.6 - 0.9 cm LVPW Systolic Thickness 1.7 cm RV Chamber Size 2.8 cm LVOT Diameter 2.0 cm LV Ejection Fraction 2D Teich 69.6 % LV Ejection Fraction MOD 2C 54.6 % LV Ejection Fraction 2C AL 55.3 % LA Diameter 2.9 cm LA Width 3.4 cm LA Height 3.7 cm RA Width 3.2 cm RA Height 4.2 cm Aorta at Sinotubular Diameter 3.3 cm IVC Diameter 0.8 cm M-MODE Aortic Annulus Diameter 3.7 cm LA Ao Ratio MM 0.8 MV E Point Septal Separation 0.9 cm DOPPLER AV Peak Velocity 139.0 cm/s LVOT Peak Velocity 72.0 cm/s AV Area Cont Eq vti 2.0 cm squared AV Area Cont Eq pk 1.7 cm squared MV Area PHT 5.8 cm squared Mitral E to A Ratio 1.3 MV E' Velocity 44.0 cm/s Mitral E to MV E' Ratio 7.0 Mitral E to LV E' Lateral Ratio 6.0 Mitral E to LV E' Septal Ratio 8.6 TR Peak Velocity 185.7 cm/s TR Peak Gradient 13.8 mmHg TR Mean Velocity 156.5 cm/s TR Mean Gradient 10.1 mmHg TR Velocity Time Integral 74.3 cm TV Peak E Velocity 59.0 cm/s Right Atrial Pressure 3.0 mmHg Pulmonary Artery Systolic Pressu 16.8 mmHg RV Acceleration Time 0.2 s RV Ejection Time 0.3 s RV AcT/ET 0.5 FINDINGS Left Ventricle Left ventricle is normal in size. LV systolic function is normal with EF of 55 to 60%. No regional wall motion abnormalities are seen. Right Ventricle Normal in size and function Right Atrium Normal in size Left Atrium Normal in size Mitral Valve Structurally normal mitral valve. No significant stenosis or regurgitation. Aortic Valve Structurally normal aortic valve. No significant stenosis or regurgitation. Tricuspid Valve Trace tricuspid regurgitation. Insufficient TR jet to calculate RVSP Pulmonic Valve Not well-visualized Pericardium Normal Aorta Normal in size IVC CONCLUSIONS LV systolic function is normal with EF 55 to 60%. No significant valvular heart disease seen. No comparison studies are available Lincoln Lewis MD (Electronically Signed) Final Date: 30 November 2021 11:55 S
--- NOTE | 2021-11-30 00:30 | PM.MISC ---
Miscellaneous Note Note: 51-year-old male in hospital for management of Dts, alcohol withdrawal seizures, started complaining of chest pain around 10 PM, described as sharp chest pain, more specific history taking is difficult as the patient has been agitated. Serial EKG and troponin has been ordered. EKG so far has shown: Sinus tachycardia, with no acute ST-T wave changes. Troponin trend: 200-187 Possibly type II NSTEMI : Related to stress/agitation. Will order 2D echo for the morning, patient is on Will add aspirin, statin, low-dose beta-britt, Nitropaste. Received 1 dose therapeutic anticoagulation of Lovenox. Morning team can consider consulting cardiology if needed.
--- NOTE | 2021-11-30 00:50 | PC.NURSE ---
Patient reported chest discomfort and pressure around 2245. HCP was notified as they were on the unit and troponin series and stat EKG were ordered. Baseline Troponin came back @201. HCP notified and ordered nitropaste. 2hr troponin came back @187.2 and HCP notified. 1 time dose for lovenox 40mg was added as well as aspirin. 02 applied at 4L as patient had refused previously. Patient remains only oriented to person. Patient is now resting more comfortably but still reports chest discomfort. HCP aware.
[2021-11-30] MEDS: enoxaparin 40 mg/0.4 mL Syringe SUBCUT (01:00)
[2021-11-30] MEDS: chlordiazePOXIDE 25 mg Capsule 50 MG PO ×4 (04:00→17:57)
--- NOTE | 2021-11-30 04:00 | ECG_ITS ---
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 Measurements Intervals [place] Rate: 98 P: 59 ND: 123 QRS: 56 QRSD: 89 T: 28 QT: 338 QTc: 432 Interpretive Statements SINUS RHYTHM ST ELEVATION, CONSIDER INFERIOR INJURY [MARKED ST ELEVATION W/O NORMALLY INFLECTED T-WAVE IN II/aVF] ACUTE [place] Compared to ECG 11/29/2021 23:53:16 Sinus tachycardia no longer present ST (T wave) deviation still present Myocardial infarct finding still present Electronically Signed On 11-30-2021 22:05:45 CDT by Lincoln Lewis M.D. [email or web address].[facility].[employer]/store/OM/[id number]
[2021-11-30 04:57] LABS: Basophils # 0.1 10^3/uL (0.0-0.1); Basophils % 0.6 %; Eosinophils # 0.3 10^3/uL (0.0-0.8); Eosinophils % 2.2 %; Hematocrit 38.8 % (42.0-52.0); Hemoglobin 13.2 g/dL (11.7-16.6); Lymphocytes # 3.1 10^3/uL (0.8-4.8); Lymphocytes % 21.4 %; Mean Corpuscular Volume 108.7 fl (80-94); Mean Platelet Volume 9.6 fL (7.4-10.4); Monocytes # 0.9 10^3/uL (0.2-0.9); Monocytes % 6.3 %; Neutrophils # 9.89 10^3/uL (1.8-7.7); Neutrophils % 69.2 %; Nucleated Red Blood Cells % 0 %; Platelet Count 227 10^3/cmm (130-400); Red Blood Count 3.57 10^6/uL (4.1-5.3); White Blood Count 14.3 10^3/uL (4.0-10.0)
[2021-11-30 05:34] LABS: Troponin 5 6HR Delta -32.7 ng/L (0-12)
[2021-11-30 05:35] LABS: Troponin 5 6HR 168.3 ng/L (0-15)
[2021-11-30] MEDS: nitroglycerin 1 gm/inch oint Pkt 0.5 INCH TOPICAL ×3 (06:28→17:58)
[2021-11-30] MEDS: hyDROXYzine 25 mg Capsule 50 MG PO (07:03)
[2021-11-30] MEDS: piperacillin-tazobactam 3.375 GM in sodium chloride 0.9% (plus) 50 ML IV (07:05)
[2021-11-30] MEDS: LORazepam 1 mg Tablet PO ×3 (07:25→22:48)
[2021-11-30] MEDS: folic acid 1 mg Tablet PO (08:02)
[2021-11-30] MEDS: multivitamin therapeutic Tablet 1 TAB PO (08:03)
[2021-11-30] MEDS: sennosides-docusate Tablet 1 TAB PO (08:03)
[2021-11-30] MEDS: aspirin 81 mg EC Tablet PO (08:03)
--- NOTE | 2021-11-30 08:57 | PC.NURSE ---
Patient gave staff his moms Zain phone number of [phone]
--- NOTE | 2021-11-30 11:05 | P.PN_ITS ---
Subjective Subjective: Patient was extubated successfully to room air yesterday Currently requiring Ativan Complain of chest pain He has been started on NSTEMI protocol Significant troponin leak We will follow-up with echo Short attention span however reviewed directable, awake and alert Significant troponin leak Do not agree with electronic liters ST elevation Vitals/I&O/Wt Last Vital Signs Temp 98.8 F 11/30/21 06:30 Pulse 94 11/30/21 10:30 Resp 10 L 11/29/21 16:17 BP 108/75 11/30/21 10:30 Pulse Ox 80 L 11/30/21 10:00 O2 Del Method 11/30/21 03:30 O2 Flow Rate 4 11/30/21 00:30 FiO2 40 11/29/21 18:00 11/29/21 11/30/21 11/30/21 22:59 06:59 14:59 Intake Total 160 / 617.402 160 / 777.402 551 / 551 Output Total 1625 / 1625 2700 / 2700 Balance -1465 / -1007.598 160 / -847.598 -2149 / -2149 Weight last 48 hrs Weight 81.647 kg Physical Exam Narrative: Patient is awake and alert Short attention span Hemodynamically stable Currently on room air Nonfocal neuro exam No active chest pain S1, S2 has Nitropaste on his chest No active chest pain Urinary Catheter Management: Foote: Cath Placed During This Visit: yes, but has since been removed by the nurse Reason for Continuing Indwelling Catheter: Accurate Measurement of Urinary Output in Critically Ill Patients Urinary Catheter Date of Insertion: 11/27/21 Urinary Catheter Time of Insertion: 10:28 Date Urinary Catheter Removed: 11/30/21 Time Urinary Catheter Discontinued: 06:30 Data : 11/30/21 04:20 11/29/21 02:30 Micro: Microbiology 11/28/21 18:20 MRSA Culture - Final Nose 11/27/21 10:00 Gram Stain - Final Sputum - Endotracheal Tube Aspirate Sputum Culture - Final 11/28/21 08:47 Blood Culture - Preliminary Blood NEGATIVE TO DATE 11/28/21 08:39 Blood Culture - Preliminary Blood NEGATIVE TO DATE A&P Assessment and plan (1) Aspiration pneumonia: (2) Depressive disorder: (3) Alcohol withdrawal seizure: (4) Suicidal ideation: (5) Alcohol abuse: (6) NSTEMI (non-ST elevated myocardial infarction): Plan I will touchbase with cardiology echo is pending There is significant troponin leak Patient is afebrile No sign of sepsis I do not agree with electronic read of ST elevation Patient has Nitropaste on Check D-dimer Continue Ativan and Librium He can be transferred upstairs Does not need ICU for now No active suicidal ideation Attestations Medical Necessity Statement*: transferred to [facility] Critical Care Time: 30 Coding Level of Care Code Acute Warp Scouring Vat Tender for [facility] Fwd Diagnoses Aspiration pneumonia J69.0 Depressive disorder F32.A Alcohol withdrawal seizure F10.939; R56.9 Suicidal ideation R45.851 Alcohol abuse F10.10 NSTEMI (non-ST elevated myocardial infarction) I21.4
[2021-11-30] MEDS: PHENobarbital 130 mg/mL SDV 1 mL 260 MG IV ×3 (11:58→17:57)
[2021-11-30 12:10] LABS: D Dimer 1.73 ug/mIFEU (0-0.59)
--- NOTE | 2021-11-30 13:57 | PC.NURSE ---
Patient transferred upstairs to room 264.
[2021-11-30] MEDS: acetaminophen 325 mg Tablet 650 MG PO (15:37)
[2021-11-30] MEDS: amoxicillin-clav 875-125 mg Tablet 1 TAB PO (17:58)
[2021-11-30] MEDS: atorvastatin 40 mg Tablet PO (22:48)
[2021-11-30] MEDS: enoxaparin 80 mg/0.8 mL Syringe SUBCUT (22:49)
[2021-11-30] MEDS: OLANZapine 5 mg TABLET 7.5 MG PO (22:52)
[2021-12-01] MEDS: nitroglycerin 1 gm/inch oint Pkt 0.5 INCH TOPICAL ×3 (00:37→11:20)
[2021-12-01 04:00] VITALS: BP 100/66; PULSE 74; RESP 15; TEMP 36.6; O2SAT 96
[2021-12-01 05:14] LABS: Anion Gap 15.7 (5-19); Blood Urea Nitrogen 8 mg/dL (6-20); Calcium 8.5 mg/dL (8.5-10.5); Carbon Dioxide 21 mmol/L (22-29); Chloride 104 mmol/L (98-107); Glomerular Filtration Rate 143.2 mL/min (90-130); Glucose 93 mg/dL (65-115); Osmolality Calculated 282 mOsm/kg (285-295); Potassium 3.7 mmol/L (3.5-5.1); Sodium 137 mmol/L (136-145)
[2021-12-01 06:19] LABS: Glucose Point of Care 96 mg/dL (70-110)
--- NOTE | 2021-12-01 07:50 | CT_ITS ---
WS: [id number] CTA OF THE CHEST WITH PULMONARY EMBOLISM PROTOCOL TECHNIQUE: High-resolution contrast enhanced CTA of the chest with coronal and sagittal reformatted i vincents with pulmonary embolism protocol. MIP images are also reviewed. CLINICAL INFORMATION: chest pain COMPARISON: None. DLP: 362.[address] [facility] use at least one of these dose optimization techniques: automated e xposure control; mA and/or kV adjustment per patient size (includes targeted exams where dose is matc hed to clinical indication); or iterative reconstruction. FINDINGS: Proximal main pulmonary arteries are normal. Normal segmental pulmonary arteries. Distal most pulmona ry arteries not well evaluated due to suboptimal contrast bolus. No evidence of pulmonary embolus. No rmal caliber thoracic aorta. Normal caliber descending thoracic aorta. Compressive/dependent atelectasis in the lung bases. Upper lobes are well aerated. No other suspiciou s pulmonary parenchymal opacities. Adrenal glands are normal. Normal GE junction. Normal spleen. Partially visualized proximal celiac an d SMA appear patent. Mild thoracic curve. No acute appearing compression fractures. CT/CT angio chest PE protcl [id number] IMPRESSION: 1. No evidence of pulmonary embolus. Suboptimal contrast bolus with poor evalu ation of the distal subsegmental pulmonary arteries. 2. Compressive/dependent atelectasis in the lung bases. Lungs otherwise well a erated. 3. No other suspicious findings.
[2021-12-01 08:00] VITALS: BP 119/84; PULSE 88; RESP 20; TEMP 36.8; O2SAT 95
[2021-12-01] MEDS: iohexol 350 mg/mL 100 mL Btl IV (08:44)
[2021-12-01] MEDS: amoxicillin-clav 875-125 mg Tablet 1 TAB PO (08:56)
[2021-12-01] MEDS: multivitamin therapeutic Tablet 1 TAB PO (08:57)
[2021-12-01] MEDS: aspirin 81 mg EC Tablet PO (08:57)
[2021-12-01] MEDS: enoxaparin 80 mg/0.8 mL Syringe SUBCUT (08:57)
[2021-12-01] MEDS: folic acid 1 mg Tablet PO (08:57)
[2021-12-01] MEDS: sennosides-docusate Tablet 1 TAB PO (08:57)
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
[2021-12-01 12:00] VITALS: BP 103/72; PULSE 95; RESP 20; TEMP 36.9; O2SAT 96
--- NOTE | 2021-12-01 16:52 | PC.NURSE ---
patient called RN into room and requested to leave AMA. Dr. Potter notified. patients orientation assessed and all questions answered appropriately, except for the date. patient thought it was still October. explained the risk of leaving AMA and not continuing antibiotics for pneumonia. patient and his mother verbalized understanding, and still requested to leave AMA.
[2021-12-01 17:47] LABS: Amphetamines Screen Urine Negative (Negative); Barbiturates Screen Urine Positive (Negative); Benzodiazepines Screen Urine Positive (Negative); Cocaine Screen Urine Negative (Negative); Opiate Screen Urine Negative (Negative); PCP Screen Urine Negative (Negative); THC Screen Urine Negative (Negative)
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
== END 2021-12-01 16:50 | disposition left against medical advice (07) | DRG 894 ==
LOC: ER 18:47 → NP 11-24 06:08 → ICU 11-26 12:21 → MEDSURG 11-30 13:44
PROVIDERS: Internal Medicine; Admitting Provider Psychiatry & Neurology Psychiatry; Emergency Provider Emergency Medicine; Visit Provider Psychiatry & Neurology Psychiatry
DX: F10.229 Alcohol dependence with intoxication, unspecified (principal); J69.0 Pneumonitis due to inhalation of food and vomit; I21.4 Non-ST elevation (NSTEMI) myocardial infarction; G40.89 Other seizures; R45.851 Suicidal ideations; F10.239 Alcohol dependence with withdrawal, unspecified; Y90.7 Blood alcohol level of 200-239 mg/100 ml; F31.9 Bipolar disorder, unspecified; B19.20 Unspecified viral hepatitis C without hepatic coma; F17.210 Nicotine dependence, cigarettes, uncomplicated; F91.1 Conduct disorder, childhood-onset type; Z53.29 Procedure and treatment not carried out because of patient's decision for other reasons
CPT/HCPCS: 36415; 36416; 36600; 51702; 70450; 71045; 71275; 80048; 80051; 80053; 80306; 80307; 81003; 82330; 82803; 82805; 82962; 83605; 83735; 84443; 84484; 85025; 85378; 87040; 87070; 87205; 87641; 93005; 93306; 94002; 94003; 94799; 96372; 97165; 99285; J0696; J1630; J1650; J1953; J2060; J2543; J2704; J3010; J3370; J3411; J3486; J3490; J7050; Q0162; Q9967